=== PATIENT | male | born 1985 | race Caucasian/White ===

== ENCOUNTER 2017-12-10 19:50 | Emergency (ER) | payer MEDICAID, SELFPAY ==
[2017-12-10 19:50] VITALS: BP 150/91; PULSE 85; RESP 16; TEMP 36.9; O2SAT 100; BMI 34.0
[2017-12-10 20:36] VITALS: BP 145/80; PULSE 88; RESP 14; O2SAT 98
[2017-12-10 20:39] VITALS: O2SAT 98
--- NOTE | 2017-12-10 20:50 | RAD_ITS ---
STUDY: X-RAY CHEST REASON FOR EXAM: Male, 32 years old. Cough TECHNIQUE: Frontal and lateral views of the chest. COMPARISON: May 29, 2015 FINDINGS: The lungs are clear and expanded. There is no demonstrated pleural abnormality. Normal size heart. Normal mediastinum and hardeep. Normal visualized pulmonary arteries. Normal visualized aortic arch and descending thoracic aorta. Normal visualized thoracic spine. Normal visualized ribs, clavicles, and shoulders. There is no demonstrated abnormality of the visualized soft tissue structures of the upper abdomen. RAD/Chest PA and Lateral IMPRESSION: Normal x-ray examination of the chest. Electronically Signed: Delbert Narayan MD at 21:11 EDT , Service support ,
[2017-12-10 20:56] LABS: Absolute Lymphocyte Count 3.12 X10^3/ul (0.83-4.51); Absolute Neutrophil Count 5.9 X10^3/uL (2.0-7.7); Basophil# 0.02 X10^3/uL; Basophil% 0.2 % (0-1); Differential Indicated SCAN CRITERIA MET; Eosinophil# 0.28 X10^3/uL; Eosinophils% 2.9 % (0-5); Hematocrit 41.5 % (40-54); Hemoglobin 14.4 g/dl (13.0-16.5); Lymphocyte # 3.12 X10^3/ul (4.0); Lymphocyte % 31.8 % (19-41); Mean Corp Hgb Conc 34.7 g/gl (32-36); Mean Corpuscular Hgb 31.5 pg (27.0-32.0); Mean Corpuscular Volume 90.8 fL (80-94); Mean Platelet Vol. 8.6 fl (6.2-12.0); Monocyte# 0.46 X10^3/uL; Monocyte% 4.7 % (0-10); Neutrophil # 5.91 X10^3/uL (2.7-7.7); Neutrophil % 60.2 % (47-70); POSITIVE COUNT NO; POSITIVE DIFFERENTIAL NO; POSITIVE MORPHOLOGY YES; Platelet Count 273 K/mm3 (150-450); RBC Distribution Width SD 39.8 fl (35.1-43.9); Red Blood Count 4.57 M/mm3 (4.6-6.2); White Blood Count 9.8 K/mm3 (4.4-11.0)
[2017-12-10 21:05] LABS: Anion Gap 9 (5-15); BUN 13 mg/dL (7-18); BUN/Creat Ratio 15.2 RATIO (10-20); Chloride 104 mmol/L (98-107); Creatinine, Serum 0.85 mg/dL (0.70-1.30); EST Glomerular Filtration Rate 109 mL/min (>60); Est Glom Filt Rate - Afr Amer 132 mL/min (>60); Estimated Creatinine Clearance 114.49 ml/min; Glucose 95 mg/dL (74-106); Potassium 4.1 mmol/L (3.5-5.1); Sodium Level 142 mmol/L (136-145)
[2017-12-10 21:21] LABS: D-Dimer Quantitative (DVT/PE) < 0.27 FEU/ug/m (0.27-0.49)
[2017-12-10 21:22] LABS: Differential Comment SCANNED
--- NOTE | 2017-12-10 21:29 | ED.VISSUMM ---
- ER Visit Summary Date of Service: 12/10/17 Chief Complaint: [Cough and hemoptysis] History of Present Illness: The patient is a 32 M [presents the emergency department with a cough that started yesterday. Patient states that he had some blood-tinged phlegm that came up multiple times. He denies passing any clots. Describes this a small amount of blood. Every time he coughs however he does see specks of blood. Patient denies any fever. He denies recent travel out of the country. He has not been the president. No risk factors for TB. Patient does not have a history of HIV. Patient is not on any blood thinners.] Physical Examination: [HEENT-PERRLA, EOMI. Cranial nerves II through XII grossly intact. TMs clear. Mucous membranes moist. No adenopathy. Cardiovascular-regular rate and rhythm without murmur or ectopy Lungs-clear to auscultation, chest wall stable without crepitus or subcu emphysema Abdomen-normoactive bowel sounds, soft, nontender, no rebound or rigidity, no peritoneal signs. Extremities-intact ?4, normal range of motion, normal pulses, atraumatic] Test Results: [CBC with differential obtained was normal. Chemistries were normal. D-dimer was less than 0.27. Chest x-ray was normal.] Emergency Department Course and Treatment: [] Treatment Plan: [Patient will be given a prescription for Tessalon Perles.] Disposition: [Discharged home in stable condition.] Patient will be referred to pulmonology on-call for follow-up if symptoms do not improve. Impression: [Cough with hemoptysis-suspect viral etiology.] This note was generated with Guest[employer] dictation software. It may contain incorrect words, spelling, and punctuation that were not noted in review of the chart prior to signing ED Disposition - Plan for ED Patient: Chief Complaint: Cough Referrals: Bianca Murdock NP-C [Primary Care Provider] -
--- NOTE | 2017-12-10 21:31 | ED.DEP ---
ED Disposition - Plan for ED Patient: Chief Complaint: Cough Instructions: ED Upper Resp Infec No Abx Tx, ED Hemoptysis Prescriptions: Benzonatate [Tessalon Perle] 200 mg PO TID PRN PRN #20 cap PRN Reason: Cough Referrals: Bianca Murdock, [facility]-C [Primary Care Provider] - Iisdro Anderson DO [STAFF PHYSICIAN] - 5-7 Days
[2017-12-10 21:47] VITALS: BP 148/81; PULSE 71; RESP 17; O2SAT 98
--- NOTE | 2017-12-11 16:49 | CM.ED ---
ED CALLBACK: Follow-up call placed to patient with no answer. Voicemail left with return contact information.
== END 2017-12-10 21:48 | disposition home or self-care (01) ==
LOC: ED 20:31
PROVIDERS: Emergency Provider Emergency Medicine; Family Provider Nurse Practitioner Family; PCP Nurse Practitioner Family
DX: J06.9 Acute upper respiratory infection, unspecified (principal); R05 Cough; R04.2 Hemoptysis; I10 Essential (primary) hypertension; M10.9 Gout, unspecified; Z79.899 Other long term (current) drug therapy; Z72.0 Tobacco use
CPT/HCPCS: 71046; 80048; 85025; 85379; 99283; A4216

== ENCOUNTER 2018-07-19 14:38 | Emergency (ER) | payer MEDICAID, SELFPAY ==
[2018-07-19 14:40] VITALS: BP 151/104; PULSE 137; RESP 19; TEMP 37.2; O2SAT 99; BMI 34.4
--- NOTE | 2018-07-19 15:03 | ED.DCSUM_ITS ---
History of Present Illness Chief Complaint: Other, Pain/Inj Informant: Patient Onset: Days Context: Gradual Onset Timing: Continuous Quality: Pump and severe pain Location: Gluteal crease Current Severity: Mild Maximum Severity: Severe Worsened by: sitting and palpation Relieved by: Nothing Associated Symptoms: no associated symptoms other than pain Narrative: Patient states he fell approximately 1 week ago. He did not have pain at the t daniel of fall. He attributes his low back pain/tailbone pain to sleeping on a futon. He denies history of diabetes. He denies fever, chills night sweats. He denies a traumatic fever, murmur, SBE or being immune suppressed. Prior similar symptoms: No Recent Illness/Hospitalization: No Capacity - Capacity Assessment Tool Can the patient make a choice & communicate that choice?: Yes Can the patient understand benefits, risks and alternatives?: Yes Can the patient make a logical, rational choice?: Yes Is the choice the patient makes consistent w/ their values?: Yes Is there an impending, emergent risk to the patient?: No - Abdomen Does the patient have an Advance Directive?: No Is there a Surrogate Available?: No i.e. HCPOA: No i.e. close relative (spouse, child, parent, sibling)?: No - He states his sister is presently in [place] and is his only ride home. - Past Medical History (1) No significant past medical history Status: Acute Past Medical History - Allergies and Home Meds Allergies/Adverse Reactions: Allergies ampicillin Allergy (Verified 07/19/18 14:39) Hives clindamycin HCl [From Cleocin] Allergy (Verified 07/19/18 14:39) Hives clindamycin palmitate HCl [From Cleocin] Allergy (Verified 07/19/18 14:39) Hives clindamycin phosphate [From Cleocin] Allergy (Verified 07/19/18 14:39) Hives erythromycin base Allergy (Verified 07/19/18 14:39) Hives Penicillins Allergy (Verified 07/19/18 14:39) Hives prednisone Allergy (Verified 07/19/18 14:39) Other bupropion HCl [From Wellbutrin] Adverse Reaction (Verified 07/19/18 14:39) Other NIGHTMARES Primary Care Physician: Bianca Murdock NP-C [NON-STAFF] - Prior records reviewed: Yes Surgical History: no surgical history Lives: Alone Smoking Status: Current every day smoker Alcohol: Rare Drugs: None Review of Systems General: Denies: Chills, Fever, Malaise, Subjective, Sweats Eyes: Denies: Visual changes - bilaterally, Diplopia ENT: Denies: Rhinorrhea, Sore throat Cardiovascular: Denies: Chest pain, Palpitations Respiratory: Denies: Dyspnea, Cough, Dyspnea on exertion Gastrointestinal: Denies: Abdominal pain, Nausea, Vomiting, Diarrhea, Melena, Hematochezia Genitourinary: Denies: Dysuria, Hematuria, Frequency Musculoskeletal: Reports: Back pain. Denies: Myalgias, Arthralgias, Neck pain, Swelling, Extremity Pain, -, - Skin: Denies: Rash, Abscess, Abrasions, Wounds, -, - Neurological: Denies: Headache, Weakness, Numbness Hematologic: Denies: Easy bruising, Easy bleeding Allergy: Denies: Uticaria, Swelling of the mouth Physical Exam Vital Signs/Narrative: Vital Signs Temp Pulse Resp BP Pulse Ox 07/19/18 14:40 98.9 F 137 H 19 H 151/104 H 99 Inital Vital Signs reviewed: Yes General: Well nourished, Well developed, - - Patient appears uncomfortable Head: Normocephalic, Atraumatic Eyes: Perrl, EOMI ENT: Moist mucous membranes, No rhinorrhea Neck: Supple, Nontender Cardiovascular: Regular rate, Regular rhythm, No murmurs Respiratory: No distress, CTA bilaterally, Chest nontender Abdomen: Soft, Nontender, Nondistended, Normal bowel sounds Rectal: - - There is redness, firmness and fluctuance mid right buttocks near the gluteal crease. There is no evidence of pilonidal cyst or abscess. Back: Nontender, Normal Inspection Extremities: Nontender, No edema Skin: Normal color, No rash Neurological: Alert, Oriented x3, Cranial nerves II-XII grossly intact, Normal Strength, Normal Sensation, Normal DTR, Normal Gait Psychological: Normal affect, Normal Mood Diagnostic/Tx/Re-eval - Medical Decision Making Patient has a gluteal abscess and will require drainage. Patient has exquisite pain to palpation. Patient does not believe he can tolerate just local anesthetic. He has not had anything to eat or drink since earlier this morning. Patient was consented for deep sedation using propofol. He denies allergy to egg products or soy products. ASA score is 1 I was informed at 1515 the patient is unable to find a ride home and apparently he does not have the time to wait after sedation. Patient was treated with antibiotics, Augmentin 875 mg twice daily and oral opiate analgesia. He was instructed to return because this will not resolve without the area being incised. ED Disposition - Plan for ED Patient: Disposition: Against Medical Advice Diagnosis: Abscess, gluteal, right Instructions: ED Zuleika Anal Abscess Abx Only Prescriptions: Hydrocodone Bitart/Apap 5-325 [Emigrant 5MG-325MG] 1 tablet PO Q6H PRN PRN 3 Days #10 tablet PRN Reason: Pain Ciprofloxacin [Cipro] 500 mg PO BID #14 tablet Metronidazole 500 mg PO TID #20 tablet Referrals: Bianca Murdock NP-C [NON-STAFF] - Additional Instructions: The definitive treatment for your condition is to have the abscess incised and drained. Antibiotics alone will not treat your condition. Your prescriptions were electronically transmitted to your pharmacy of choice.
[2018-07-19] MEDS: metroNIDAZOLE 500 MG Tablet PO (15:33)
[2018-07-19] MEDS: Ciprofloxacin 500 MG Tablet PO (15:33)
--- NOTE | 2018-07-19 15:35 | ED.RN ---
PT LEAVING AMA. DOES NOT HAVE TIME FOR SEDATION TODAY.
== END 2018-07-19 15:40 | disposition left against medical advice (07) ==
PROVIDERS: Emergency Provider Emergency Medicine
DX: L02.31 Cutaneous abscess of buttock (principal); F17.200 Nicotine dependence, unspecified, uncomplicated
CPT/HCPCS: 99283

== ENCOUNTER 2023-02-20 20:15 | Emergency (ER) | payer MEDICAID, SELFPAY ==
[2023-02-20 20:15] VITALS: BP 147/95; PULSE 81; RESP 16; TEMP 36.6; O2SAT 100; BMI 36.3
--- NOTE | 2023-02-20 21:00 | RAD_ITS ---
EXAM: XR CHEST, 1 VIEW CLINICAL INDICATION: chest pain TECHNIQUE: Frontal view of the chest. COMPARISON: December 10, 2017 FINDINGS: LUNGS AND PLEURAL SPACES: Unremarkable. No consolidation or edema. No pneumothorax. No effusion. HEART: Unremarkable. Cardiac silhouette not enlarged. MEDIASTINUM: Central airways and mediastinal contour are unremarkable. BONES/JOINTS: Unremarkable. No acute fracture. SOFT TISSUES: Unremarkable. RAD/Chest 1 View (Portable) IMPRESSION: No radiographic evidence of acute cardiopulmonary disease. Electronically Signed: Hilton Argueta MD at 22:21 EST ,
[2023-02-20 21:09] LABS: Absolute Lymphocyte Count 3.51 X10^3/uL (0.83-4.51); Absolute Neutrophil Count 5.3 X10^3/uL (2.0-7.7); Basophil# 0.08 X10^3/uL; Basophil% 0.8 % (0-1); Eosinophil# 0.21 X10^3/uL; Eosinophils% 2.2 % (0-5); Hematocrit 43.6 % (40-54); Hemoglobin 14.8 g/dL (13.0-16.5); Lymphocyte # 3.51 X10^3/ul (0.83-4.51); Lymphocyte % 36.4 % (19-41); Mean Corp Hgb Conc 33.9 g/dL (32-36); Mean Corpuscular Hgb 30.9 pg (27.0-32.0); Mean Platelet Vol. 8.4 fl (6.2-12.0); Monocyte# 0.52 X10^3/uL; Monocyte% 5.4 % (0-10); NRBC Flagged by Analyzer 0 % (0-5); Neutrophil # 5.28 X10^3/uL (2.7-7.7); Neutrophil % 54.9 % (47-70); Platelet Count 346 K/mm3 (150-450); RBC Distribution Width CV 12.1 % (11.6-14.6); RBC Distribution Width SD 40.3 fl (35.1-43.9); Red Blood Count 4.79 M/mm3 (4.6-6.2); White Blood Count 9.6 K/mm3 (4.4-11.0)
--- NOTE | 2023-02-20 21:12 | EDS_ITS ---
HPI History of Present Illness Chief Complaint: Chest Pain Informant: patient Narrative Narrative: 37-year-old male presenting to the emergency department chief complaint of chest pain. Patient has a history of hypertension and tobacco use and states that tonight around 1900 hrs. he developed a intermittent sharp-like chest pain the left pectoralis region. He notes that his left arm had some achiness into it. He states that he has had similar pains like this in the past with gas. He states that whenever he would release flatulence he would feel better. He states that as he was driving he began to have a tingling sensation in his head. He returned home and took his blood pressure and it was elevated. He states he took a extra metoprolol and his head tingling improved. He states that he debated a lot about whether or not he should come to emergency. [facility] Medical History (Updated 02/20/23 @ 22:[address] Samir Barrera, DO) Hypertension Kidney stone Home Medications tramadol 50 mg tablet 50 - 100 mg PO TID 02/13/15 [History Last Taken 05/29/15] metoprolol tartrate 50 mg tablet 50 mg PO TID #60 tabs 03/20/15 [Rx Last Taken 05/29/15] ciprofloxacin HCl 500 mg tablet 500 mg PO BID ##14 07/19/18 [Rx Last Taken Unknown] gabapentin 600 mg tablet 600 mg PO BID 07/19/18 [History Last Taken Unknown] metronidazole 500 mg tablet 500 mg PO TID #20 tabs 07/19/18 [Rx Last Taken Unknown] sertraline 25 mg tablet 25 mg PO DAILY 07/19/18 [History Last Taken Unknown] Allergy/AdvReac Type Severity Reaction Status Date / Time ampicillin Allergy Hives Verified 02/20/23 20:17 clindamycin HCl Allergy Hives Verified 02/20/23 20:17 [From Cleocin] clindamycin palmitate HCl Allergy Hives Verified 02/20/23 20:17 [From Cleocin] clindamycin phosphate Allergy Hives Verified 02/20/23 20:17 [From Cleocin] erythromycin base Allergy Hives Verified 02/20/23 20:17 Penicillins Allergy Hives Verified 02/20/23 20:17 prednisone Allergy Other Verified 02/20/23 20:17 bupropion HCl AdvReac Other Verified 02/20/23 20:17 [From Wellbutrin] Social History Smoking Status: Current every day smoker tobacco type: cigarettes ROS ROS ED Constitutional Constitutional ED: Denies chills, fever(s) or weight loss Eyes Eyes: Denies change in vision or diplopia ENT ENT ED: Denies ear pain, rhinorrhea or sore throat Cardiovascular Cardiovascular: Reports chest pain; Denies orthopnea, palpitations or racing heartbeat Respiratory/Chest Respiratory/Chest: Denies cough, dyspnea or orthopnea Gastrointestinal Gastrointestinal: Denies abdominal pain, diarrhea, nausea or vomiting Genitourinary Genitourinary ED: Denies dysuria, hematuria or urinary frequency Musculoskeletal Musculoskeletal: Denies arthralgias or myalgias Integumentary Denies abscess or rash Neurologic Neurologic: Reports paresthesias; Denies headache(s) or weakness Psychiatric Psychiatric: Denies anxiety, depression, suicidal ideation or suicidal thoughts Endocrine Endocrinology: Denies polydipsia, polyphagia or polyuria Allergic/Immunologic Allergic/Immunologic ED: Denies mouth swelling, tongue swelling or urticaria EXAM Physical Exam Const Vital Signs: 02/20/23 20:15 02/20/23 20:35 02/20/23 21:20 Temperature 97.8 F Temperature Source Temporal Pulse Rate 81 75 Respiratory Rate 16 17 Respiratory Effort Normal Blood Pressure 147/95 H Blood Pressure Mean 112 Pulse Ox 100 Oxygen Delivery Method Room Air 02/20/23 22:00 Temperature Temperature Source Pulse Rate 90 Respiratory Rate 24 H Respiratory Effort Blood Pressure Blood Pressure Mean Pulse Ox 96 Oxygen Delivery Method Room Air Positive well nourished and well developed General Appearance ED: well developed HEENT Reports normocephalic, head/scalp atraumatic and moist mucous membranes Eyes PERRL and EOMs intact bilaterally Neck no lymphadenopathy, supple and no JVD Resp normal respiratory effort and clear to auscultation bilaterally Cardio regular rate, regular rhythm and no murmurs GI normal to inspection, nondistended, normoactive bowel sounds and non-tender Palpation: soft Back/Spine no CVA tenderness and normal ROM Extremity normal to inspection General Extremety ED: Negative for edema General Extremity: Negative for edema Neuro oriented x3 and CN's II-XII intact bilaterally Sensorium / Orientation: alert Motor Exam: strength 5/5 throughout Psych mental status grossly normal Mood & Affect: Negative for depressed or tearful Skin no rashes or lesions noted and no wounds Heart Score History: Slightly/Non-Suspicious ECG: Normal Age: </= 45 years Risk Factors: 1 or 2 Risk Factors Troponin: </= Normal Limit Score: 1 MDM MDM MDM Narrative Medical decision making narrative: My independent interpretation of the single view chest x-ray is no acute process. Troponin is 4. BMP showed glucose of 122. CBC normal. Patient has remained in a normal sinus rhythm. Blood pressures overall improved. He is asymptomatic at the time. We talked about delta troponin. We talked about cardiovascular risk modification. At this point using shared decision making patient will be discharged home. He is to follow-up with his doctor return if worsening History & Record Review Discussion w/independent historian: Patient Lab Data Attestation: I reviewed the patient's lab results. Labs: Laboratory Results - last 24 hr 02/20/23 20:30 WBC 9.6 RBC 4.79 Hgb 14.8 Hct 43.6 MCV 91.0 MCH 30.9 MCHC 33.9 RDW Std Deviation 40.3 RDW Coeff of Karel 12.1 Plt Count 346 MPV 8.4 Immature Gran % (Auto) 0.300 Neut % (Auto) 54.9 Lymph % (Auto) 36.4 Addison % (Auto) 5.4 Eos % (Auto) 2.2 Baso % (Auto) 0.8 Absolute Neuts (auto) 5.3 Absolute Lymphs (auto) 3.51 Nucleated RBC % 0 Sodium 136 Potassium 3.7 Chloride 104 Carbon Dioxide 29.0 Anion Gap 3 L BUN 11 Creatinine 0.88 Estim Creat Clear Calc 105.37 Est GFR (MDRD) Af Amer 123 Est GFR (MDRD) Non-Af 102 BUN/Creatinine Ratio 12.5 Glucose 122 H Calcium 9.2 Troponin I High Sens 4 EKG Initial EKG: Attestation: I personally reviewed and interpreted this EKG as follows: Comments: Normal sinus rhythm with a ventricular rate of 74. No definitive features of ACS noted. Differential Diagnosis Chest pain/SOB: pulmonary embolism, ACS, pneumothorax, pneumonia, aortic dissection and CHF Discharge Plan Triage Chief Complaint: Chest Pain ED Provider: Samir Barrera Dx/Rx/DC Orders Clinical Impression: Chest pain, Hypertension Instructions: ED Chest Pain, Noncardiac Prescriptions: No Action tramadol 50 MG tablet 50 - 100 mg PO TID metoprolol tartrate 50 MG tablet 50 mg PO TID Qty: 60 0RF gabapentin 600 tablet 600 mg PO BID sertraline 25 MG tablet 25 mg PO DAILY ciprofloxacin HCl 500 MG tablet 500 mg PO BID Qty: 14 0RF metronidazole 500 MG tablet 500 mg PO TID Qty: 20 0RF Primary Care Provider: Hair Smith Referrals: Hair Smith MD [Primary Care Provider] - 1-2 Weeks Disposition Disposition: Home, Self Care
[2023-02-20 21:20] VITALS: PULSE 75; RESP 17
[2023-02-20 21:27] LABS: Anion Gap 3 (5-15); BUN 11 mg/dL (7-18); BUN/Creat Ratio 12.5 RATIO (10-20); Calcium,Total 9.2 mg/dL (8.5-10.1); Chloride 104 mmol/L (98-107); Creatinine, Serum 0.88 mg/dL (0.70-1.30); EST Glomerular Filtration Rate 102 mL/min (>60); Est Glom Filt Rate - Afr Amer 123 mL/min (>60); Estimated Creatinine Clearance 105.37 ml/min; Glucose 122 mg/dL (74-106); Potassium 3.7 mmol/L (3.5-5.1); Sodium Level 136 mmol/L (136-145); Troponin-I HS 4 pg/mL (3.0-78.0)
[2023-02-20 22:00] VITALS: PULSE 90; RESP 24; O2SAT 96
[2023-02-20 22:18] VITALS: BP 145/63; PULSE 92; TEMP -8.8; TEMP 16
== END 2023-02-20 22:19 | disposition home or self-care (01) ==
PROVIDERS: Emergency Provider Emergency Medicine; PCP Family Medicine; Visit Provider Emergency Medicine
DX: R07.9 Chest pain, unspecified (principal); I10 Essential (primary) hypertension; F17.210 Nicotine dependence, cigarettes, uncomplicated; Z79.899 Other long term (current) drug therapy
CPT/HCPCS: 71045; 80048; 84484; 85025; 93005; 99284; A4216

== ENCOUNTER 2023-03-09 17:03 | Emergency (ER) | payer MEDICAID, SELFPAY ==
[2023-03-09 17:04] VITALS: BP 134/84; PULSE 97; RESP 18; TEMP 36.7; O2SAT 97; BMI 35.9
--- NOTE | 2023-03-09 18:17 | EX.ED.DYSGE1 ---
HPI History of Present Illness Chief Complaint: Abscess Detail of Chief Complaint: Abscess buttocks Informant: patient Narrative Narrative: Who presents to the emergency department with complaint of pain and swelling to his buttock area that he noticed yesterday. Patient states that he had a cyst back there years ago that was drained and intermittently has had some drainage from it. Patient since yesterday has had fever up to 101 at home. Patient worried about infection. [facility] Medical History (Updated 03/09/23 @ 18:[address] Suzanne Da Silva DO) Hypertension Kidney stone Home Medications tramadol 50 mg tablet 50 - 100 mg PO TID 02/13/15 [History Last Taken 05/29/15] metoprolol tartrate 50 mg tablet 50 mg PO TID #60 tabs 03/20/15 [Rx Last Taken 05/29/15] ciprofloxacin HCl 500 mg tablet 500 mg PO BID ##14 07/19/18 [Rx Last Taken Unknown] gabapentin 600 mg tablet 600 mg PO BID 07/19/18 [History Last Taken Unknown] metronidazole 500 mg tablet 500 mg PO TID #20 tabs 07/19/18 [Rx Last Taken Unknown] sertraline 25 mg tablet 25 mg PO DAILY 07/19/18 [History Last Taken Unknown] cephalexin 500 mg capsule 500 mg PO Q6 #40 CAPSULES 03/09/23 [Rx Last Taken Unknown] sulfamethoxazole 800 mg-trimethoprim 160 mg tablet 1 tab PO BID #20 TABLETS 03/09/23 [Rx Last Taken Unknown] Allergy/AdvReac Type Severity Reaction Status Date / Time ampicillin Allergy Hives Verified 03/09/23 17:04 clindamycin HCl Allergy Hives Verified 03/09/23 17:04 [From Cleocin] clindamycin palmitate HCl Allergy Hives Verified 03/09/23 17:04 [From Cleocin] clindamycin phosphate Allergy Hives Verified 03/09/23 17:04 [From Cleocin] erythromycin base Allergy Hives Verified 03/09/23 17:04 Penicillins Allergy Hives Verified 03/09/23 17:04 prednisone Allergy Other Verified 03/09/23 17:04 bupropion HCl AdvReac Other Verified 03/09/23 17:04 [From Wellbutrin] Social History Smoking Status: Current every day smoker tobacco type: cigarettes ROS ROS ED Review of Systems ROS Unobtainable: other Constitutional Constitutional ED: Reports lethargy; Denies chills, fever(s), sweats or weight loss Eyes Eyes: Denies blurry vision, change in vision or diplopia ENT ENT ED: Denies rhinorrhea or sore throat Cardiovascular Cardiovascular: Denies chest pain, orthopnea or racing heartbeat Respiratory/Chest Respiratory/Chest: Reports dyspnea and dyspnea on exertion; Denies cough, orthopnea or sputum Gastrointestinal Gastrointestinal: Denies abdominal pain, diarrhea, nausea or vomiting Genitourinary Genitourinary ED: Denies dysuria, hematuria or urinary frequency Musculoskeletal Musculoskeletal: Denies arthralgias, back pain, myalgias or neck pain Integumentary Reports other Details: Full swelling to buttock area ; Denies abscess, Abrasions or rash Neurologic Neurologic: Denies headache(s) or weakness Psychiatric Psychiatric: Denies anxiety, depression or suicidal thoughts Endocrine Endocrinology: Denies polydipsia, polyphagia or polyuria Hematologic/Lymphatic Hematologic/Lymphatic: Denies easy bleeding, easy bruising or lymphadenopathy Allergic/Immunologic Allergic/Immunologic ED: Denies mouth swelling, tongue swelling or urticaria EXAM Physical Exam Const Vital Signs: 03/09/23 17:04 03/09/23 18:30 03/09/23 18:31 Temperature 98.1 F 98.1 F Temperature Source Temporal Temporal Pulse Rate 97 97 89 Respiratory Rate 18 18 16 Blood Pressure 134/84 H 134/84 H 124/64 H Blood Pressure Mean 100 100 84 Pulse Ox 97 97 95 Oxygen Delivery Method Room Air Room Air Positive well nourished and well developed General Appearance ED: well developed and NAD HEENT Reports TM's clear and moist mucous membranes normocephalic and atraumatic; Negative for trauma or tenderness Tympanic Membrane ED: Yes TM's clear Eyes PERRL and EOMs intact bilaterally General Eye ED: Negative for pale conjunctiva or scleral icterus Neck no lymphadenopathy, supple and no JVD General: Negative for tenderness Chest Wall inspection of chest normal and palpation of chest normal Chest: Negative for tenderness Resp normal respiratory effort and clear to auscultation bilaterally Effort and Inspection: Negative for respiratory distress or pain with movement Auscultation: Negative for rhonchi, wheezes or diminished lung sounds Cardio regular rate, regular rhythm, S1 normal heart sound, S2 normal heart sound and no murmurs Peripheral Pulses: pulses 2+ throughout GI normal to inspection, nondistended, normoactive bowel sounds, soft to palpation, non-tender, non-distended and no masses Back/Spine no CVA tenderness and no thoracic nor lumbar tenderness Back/Spine Narrative: Valuation of the buttocks does reveal what appears to be a pilonidal cyst more towards the left side of the gluteal cleft. Area very fluctuant and tender to palpation. Extremity normal to inspection General Extremety ED: Negative for edema General Extremity: Negative for edema Neuro oriented x3, CN's II-XII intact bilaterally, no sensory deficits noted and gait normal Sensorium / Orientation: awake, alert, oriented to person, oriented to place and oriented to time Motor Exam: strength 5/5 throughout and strength abnormal Psych mental status grossly normal Skin no rashes or lesions noted and no wounds MDM MDM MDM Narrative Medical decision making narrative: Patient presents with an infected pilonidal cyst. He was offered incision and drainage which she agrees to. Patient did not want any anesthetic. I did clean the skin with alcohol. Using an 11 blade a 2 cm incision made into the fluctuant portion of the abscess and large amount of free-flowing purulent foul-smelling debris was expressed. Area was milked until no further expression of purulent debris. Clean dressing applied. Will start patient on Keflex and Bactrim. Advised to follow-up with general surgery on-call for follow-up. Discharge Plan Triage Chief Complaint: Abscess ED Provider: Suzanne Da Silva Dx/Rx/DC Orders Clinical Impression: Chronic recurrent pilonidal cyst Instructions: ED Abscess Incision And Drainage Prescriptions: New sulfamethoxazole-trimethoprim [sulfamethoxazole-trimethoprim] 800-160 mg tablet 1 tab PO BID Qty: 20 0RF cephalexin [cephalexin] 500 mg capsule 500 mg PO Q6 Qty: 40 0RF No Action tramadol 50 MG tablet 50 - 100 mg PO TID metoprolol tartrate 50 MG tablet 50 mg PO TID Qty: 60 0RF gabapentin 600 tablet 600 mg PO BID sertraline 25 MG tablet 25 mg PO DAILY ciprofloxacin HCl 500 MG tablet 500 mg PO BID Qty: 14 0RF metronidazole 500 MG tablet 500 mg PO TID Qty: 20 0RF Primary Care Provider: Hair Smith Referrals: Hair Smith MD [Primary Care Provider] - Gregorio Larkin MD [Med Staff - Active Staff] - 3-5 Days Disposition Disposition: Home, Self Care Discharge Date/Time: 03/09/23 18:39
[2023-03-09 18:30] VITALS: BP 134/84; PULSE 97; RESP 18; TEMP 36.7; O2SAT 97
[2023-03-09 18:31] VITALS: BP 124/64; PULSE 89; RESP 16; O2SAT 95
== END 2023-03-09 18:39 | disposition home or self-care (01) ==
PROVIDERS: Emergency Provider Emergency Medicine; PCP Family Medicine; Visit Provider Emergency Medicine
DX: L05.01 Pilonidal cyst with abscess (principal); F17.210 Nicotine dependence, cigarettes, uncomplicated; I10 Essential (primary) hypertension; Z79.899 Other long term (current) drug therapy
CPT/HCPCS: 10060; 99283